=== PATIENT | male | born 1990 | race Caucasian/White ===

== ENCOUNTER 2019-04-25 20:07 | Emergency (ER) | payer SELFPAY ==
[~2019-04-25] VITALS: Ht 172.7 cm; Wt 76.8 kg
[2019-04-25 20:13] VITALS: BP 127/78; PULSE 96; RESP 18; Ht 172.7 cm; Wt 76.8 kg
--- NOTE | 2019-04-25 22:09 | ERD ---
ER Documentation Chief Complaint Chief Complaint SORES ON TONGUE, SWELLING X'S 1 MONTH HPI This is a 29-year-old male who presents emergency department with complaints of sores to tongue that is about 1 month. Stated it he went to the clinic couple of days ago and was prescribed cephalexin and chlorhexidine with gluconate. Denies headache, head injury, loss of consciousness, dizziness, neck pain, neck stiffness, throat pain, difficulty swallowing, difficulty breathing lying flat, shoulder pain, chest pain, back pain, abdominal pain, nausea, vomiting, constipation, diarrhea, urinary symptoms, loss of bowel and bladder control, trauma, injury, falls, difficulty walking due to pain, numbness or tingling sensation, calf pain, recent travel, recent major surgery in the last 3 weeks, calf pain, recent long travel, recent exposure to any illness, recent antibiotic use in the last 3 months, fever, chills, seizures. Past medical history: Surgical history: Social: Denies smoking, use of alcoholic beverages, use of illegal drugs. ROS All systems reviewed and are negative except as per history of present illness. Medications Home Meds Active Scripts Ondansetron Hcl* (Zofran*) 4 Mg Tablet, 4 MG PO Q8H PRN for NAUSEA AND/OR VOMITING, #30 TAB Prov:PASILABAN,KLAR F 04/25/19 Ibuprofen* (Motrin*) 800 Mg Tab, 800 MG PO Q6H PRN for PAIN AND OR ELEVATED TEMP, #30 TAB Prov:PASILABAN,KLAR F 04/25/19 Allergies Allergies: Coded Allergies: No Known Allergy (Unverified , 04/25/19) PMhx/Soc Medical and Surgical Hx: pt denies Medical Hx, pt denies Surgical Hx Hx Alcohol Use: No Hx Substance Use: No Hx Tobacco Use: No Smoking Status: Never smoker Physical Exam Vitals Physical Exam Head: Atraumatic Eyes: Normal Conjunctiva ENT: Normal External Ears, Nose and Mouth. Bilateral ears: TMs are not erythematous. No bleeding. No discharge. No hearing loss. No mastoid tenderness. Nose: There is no frontal or maxillary sinus tenderness palpation. Throat: Uvula is in midline and nondisplaced. Tonsils are +2 bilaterally with redness but without exudates. 4 vesicular lesions noted to oropharyngeal area. Tolerating secretions. Patent airway. Speaks full and clear sentences. No tripoding. Neck: Full range of motion. No meningismus. No nuchal rigidity. No signs of meningeal irritation. Resp: Clear to auscultation bilaterally. No accessory muscle use in breathing. Cardio: Regular rate and rhythm, no murmurs Abd: Soft, non tender, non distended. Normal bowel sounds. Negative Martinez sign. Skin: No petechiae or rashes. Color appears normal for ethnicity. No skin tenting. No signs of severe dehydration. Back: No midline or flank tenderness Ext: No cyanosis, or edema Neur: Awake and alert. No neurological deficits. Psych: Normal Mood and Affect Results 24 hrs Current Medications Medications Dose Sig/Gil Start Time Status Last (Trade) Ordered Route PRN Stop Time Admin Dose Reason Admin 10 mg ONCE ONCE 04/25/19 DC 04/25/19 Dexamethasone IM 22:30 22:28 (Decadron) 04/25/19 22:31 Ondansetron 4 mg ONCE STAT 04/25/19 DC 04/25/19 HCl (Zofran ODT 22:10 22:27 Odt) 04/25/19 22:12 Famotidine 40 mg ONCE ONCE 04/25/19 DC 04/25/19 (Pepcid) PO 22:30 22:27 04/25/19 22:31 Ibuprofen 800 mg ONCE ONCE 04/25/19 DC 04/25/19 (Motrin) PO 22:30 22:27 04/25/19 22:31 Procedures/MDM Diagnostic tests: Clinical exam. Treatment: Dexamethasone IM. Pepcid. Zofran. Motrin. Re-evaluation: No episode of emesis in the emergency department. No drooling. No tripoding. Speaks full sentences. Patent airway. Differential diagnosis I have low suspicion for peritonsillar abscess, angioedema, airway obstruction. Final diagnosis: Herpangina. Prescription: Motrin. Magic mouthwash. Zofran. Follow-up with PCP in the next 24-48 hours. Come back here in the emergency department for any new symptoms or any worsening symptoms. All questions and concerns were answered. Patient and family members verbalized understanding and agreed with plan of care. Hemodynamically stable on discharge. Departure Diagnosis: Primary Impression: Herpangina Condition: Stable Additional Instructions: Follow-up with PCP in the next 24-48 hours. Come back here in the emergency department for any new symptoms or any worsening symptoms. UZMA MOHAMUD Apr 25, 2019 22:09
[2019-04-25] MEDS ORDERED: ONDANSETRON (ODT) 4 MG TAB ODT STA (22:10)
[2019-04-25] MEDS ORDERED: IBUPROFEN 800 MG TAB PO ONE (22:30)
[2019-04-25] MEDS ORDERED: FAMOTIDINE 20 MG TAB PO ONE (22:30)
[2019-04-25] MEDS ORDERED: DEXAMETHASONE 10 MG/ML 1 ML INJ IM ONE (22:30)
[2019-04-25] MEDS ORDERED: IBUP800T48 PO (22:41)
[2019-04-25] MEDS ORDERED: ONDA4TAB8 PO (22:41)
== END 2019-04-25 22:59 | disposition home or self-care (01) ==
LOC: FTE 20:07
DX: B08.5 Enteroviral vesicular pharyngitis (principal)
CPT/HCPCS: 96372; 99284; J1100